=== PATIENT | female | born 1985 | race Caucasian/White ===

== ENCOUNTER 2022-03-24 08:14 | Outpatient (CLI) | payer BC | END 2022-03-24 08:15 | disposition home or self-care (01) | LOC: CT 08:14 | PROVIDERS: ATTEND Registered Nurse | DX: G44.209 Tension-type headache, unspecified, not intractable (principal); R42 Dizziness and giddiness | CPT/HCPCS: 70450 ==

== ENCOUNTER 2022-04-25 10:51 | Outpatient (CLI) | payer BC ==
[~2022-04-25 10:51] MED LIST: Magnevist 469MG/ML 20 ML VIAL ONE
== END 2022-04-25 10:52 | disposition home or self-care (01) ==
LOC: MRI 10:51
PROVIDERS: ATTEND Registered Nurse
DX: R93.0 Abnormal findings on diagnostic imaging of skull and head, not elsewhere classified (principal); R90.82 White matter disease, unspecified
CPT/HCPCS: 70553; A9579